=== PATIENT | female | born 1975 | race Caucasian/White ===

== ENCOUNTER 2017-03-04 10:46 | Day surgery (SDC) | payer MEDICARE, MEDICAID ==
[2017-02-28 09:33] LABS: BASOPHILS % (AUTO) 0.4 % (0-1); EOSINOPHILS # (AUTO) 0.2 X10'3 (0-0.9); EOSINOPHILS % (AUTO) 2.3 % (0-6); HEMOGLOBIN 11.7 g/dl (12.0-16.0); LYMPHOCYTES # (AUTO) 2.1 X10'3 (1.1-4.8); LYMPHOCYTES % (AUTO) 31.1 % (21-51); MEAN CORPUSCULAR HEMOGLOBIN 24.4 PG (27.0-31.0); MEAN CORPUSCULAR HGB CONC 31.5 % (33.0-36.5); MEAN CORPUSCULAR VOLUME 77.6 FL (78-98); MONOCYTES # (AUTO) 0.4 X10'3 (0-0.9); MONOCYTES % (AUTO) 5.5 % (2-12); NEUTROPHILS # (AUTO) 4.1 X10'3 (1.8-7.7); NEUTROPHILS % (AUTO) 60.7 % (42-75); PLATELET COUNT 404 X10'3 (140-440); RED BLOOD COUNT 4.77 X10'6 (4.20-5.60); RED CELL DISTRIBUTION WIDTH 19.3 % (11.5-14.5); WHITE BLOOD COUNT 6.8 X10'3 (4.5-11.0)
[2017-02-28 09:44] LABS: PARTIAL THROMBOPLASTIN TIME 25 SECONDS (22-32); PROTHROMBIN TIME 10.6 SECONDS (9.0-12.0)
[2017-02-28 09:48] LABS: ALBUMIN 3.3 G/DL (3.4-5.0); ANION GAP 5 (8-16); BLOOD UREA NITROGEN 12 MG/DL (7-18); BUN/CREATININE RATIO 14.5 (6.6-38.0); CALCIUM 9.3 MG/DL (8.5-10.1); CHLORIDE 107 MMOL/L (99-107); CHOL/HDL RATIO 6.4 (0.00-4.99); CHOLESTEROL 187 MG/DL (0-200); CREATININE 0.83 MG/DL (0.40-0.90); GLUCOSE 101 MG/DL (70-104); HDL CHOLESTEROL 29 MG/DL (35-60); LDL CHOLESTEROL 132 MG/DL (50-100); POTASSIUM 3.4 MMOL/L (3.5-5.1); SODIUM 141 MMOL/L (135-145); TOTAL CARBON DIOXIDE 28.6 MMOL/L (24-32); TRIGLYCERIDES 223 MG/DL (20-135); eGFR 75 ML/MIN
[2017-03-04] VITALS (10 sets, daily range): BP systolic 123–161; BP diastolic 58–91
[~2017-03-04] VITALS: Ht 180.3 cm; Wt 97.0 kg
[2017-03-04] MEDS ORDERED: normal saline 1000ml 1,000 ML IV SCH (11:10)
[2017-03-04] MEDS ORDERED: LORazepam 0.5 MG tablet PO PRN (11:10)
[2017-03-04] MEDS ORDERED: diphenhydrAMINE 25mg capsule PO PRN (11:10)
[2017-03-04] MEDS ORDERED: ARIP10TA15 PO (12:57)
[2017-03-04] MEDS ORDERED: ISOS30TA6 PO (12:57)
[2017-03-04] MEDS ORDERED: GABA-532 PO (12:57)
[2017-03-04] MEDS ORDERED: GABA600T2 PO (12:57)
[2017-03-04] MEDS ORDERED: CLON-529 PO (12:57)
[2017-03-04] MEDS ORDERED: ATOR40TA PO (12:57)
[2017-03-04] MEDS ORDERED: ASPI-611 PO (12:57)
[2017-03-04] MEDS ORDERED: ALB0.5UD NEB (12:57)
[2017-03-04] MEDS ORDERED: BENZ-16 PO (13:08)
[2017-03-04] MEDS ORDERED: ALBU18HF2 INH (13:08)
[2017-03-04] MEDS ORDERED: PRAZ5CAP PO (13:08)
[2017-03-04] MEDS ORDERED: CHOL10002 PO (13:08)
[2017-03-04] MEDS ORDERED: METO25TA6 PO (13:08)
[2017-03-04] MEDS ORDERED: QUET1TAB PO (13:08)
[2017-03-04] MEDS ORDERED: PANT-47 PO (13:08)
[2017-03-04] MEDS ORDERED: LORA-512 PO (13:08)
[2017-03-04] MEDS ORDERED: PER10325T PO (13:08)
[2017-03-04] MEDS ORDERED: fentaNYL/PF 50MCG/1 ML 2ML syringe ONE ×2 (14:06→14:55)
[2017-03-04] MEDS ORDERED: midazolam 2 mg/2 ml injection ONE (14:06)
[2017-03-04] MEDS ORDERED: iohexol 350MG/ML 100ml bottle IV ONE (14:07)
[2017-03-04] MEDS ORDERED: LIDOcaine 1%/PF (10mg/ml) 5ml vial ONE (15:00)
[2017-03-04] MEDS ORDERED: iohexol 350 MG/ML 50ML vial IV ONE (15:18)
[2017-03-04] MEDS ORDERED: nitroGLYCERIN 0.4mg SUBLingual tab SL PRN (15:55)
[2017-03-04] MEDS ORDERED: proCHLORperazine 10 MG/2 ml inj IV PRN (15:55)
[2017-03-04] MEDS ORDERED: HYDROcodone/acetaminophen 5mg/325mg tablet PO PRN (15:55)
[2017-03-04] MEDS ORDERED: oxyCODONE/APAP 10/325mg tablet PO PRN (15:55)
[2017-03-04] MEDS ORDERED: HYDROcodone/acetaminophen 10/325mg tab PO PRN (15:55)
[2017-03-04] MEDS ORDERED: ondansetron/PF 4mg/2ml inj IV PRN (15:55)
[2017-03-04] MEDS ORDERED: OXAZEpam 15mg capsule PO PRN (15:55)
== END 2017-03-04 19:00 | disposition home or self-care (01) ==
LOC: SSTAY O 10:46
PROVIDERS: ATTEND Internal Medicine Interventional Cardiology
DX: I25.10 Atherosclerotic heart disease of native coronary artery without angina pectoris (principal); I10 Essential (primary) hypertension; K21.9 Gastro-esophageal reflux disease without esophagitis; E78.5 Hyperlipidemia, unspecified; Q23.1 Congenital insufficiency of aortic valve; E11.9 Type 2 diabetes mellitus without complications; G47.33 Obstructive sleep apnea (adult) (pediatric); C85.90 Non-Hodgkin lymphoma, unspecified, unspecified site; F17.210 Nicotine dependence, cigarettes, uncomplicated; F31.9 Bipolar disorder, unspecified; Z79.82 Long term (current) use of aspirin; Z79.899 Other long term (current) drug therapy; Z79.01 Long term (current) use of anticoagulants
CPT/HCPCS: 36415; 80048; 80061; 82948; 85025; 85610; 85730; 93308; 93312; 93320; 93325; 93458; 93567; 99152; 99153; A6257; C1760; C1769; J1644; J2001; J2250; J2405; J3010; J7030; Q0163; Q9967; 93459; A4620

== ENCOUNTER 2017-03-26 08:11 | Emergency (ER) | payer MEDICARE, MEDICAID ==
[~2017-03-26] VITALS: Ht 167.6 cm; Wt 95.0 kg
[~2017-03-26 08:11] MED LIST: ALB0.5UD NEB; ALBU18HF2 INH; ARIP10TA15 PO; ASPI-611 PO; ATOR40TA PO; BENZ-16 PO; CHOL10002 PO; CLON-529 PO; GABA-532 PO; GABA600T2 PO; ISOS30TA6 PO; LORA-512 PO; METO25TA6 PO; PANT-47 PO; PER10325T PO; PRAZ5CAP PO; QUET1TAB PO
[2017-03-26] MEDS ORDERED: oxyCODONE IR 5mg (immed. release) tablet PO ONE (09:35)
[2017-03-26] MEDS ORDERED: ketorolac trometh inj. 60 MG/2 ML VIAL IM ONE (09:35)
[2017-03-26] MEDS ORDERED: cyclobenzaprine 10mg tablet PO ONE (09:35)
[2017-03-26] MEDS ORDERED: acetaminophen 325mg tablet PO ONE (09:35)
[2017-03-26] MEDS ORDERED: LIDOcaine 5% patch TP ONE (09:35)
[2017-03-26] MEDS ORDERED: CYCL-1 PO (10:28)
[2017-03-26] MEDS ORDERED: LIDO700A32 TOP (10:28)
[2017-03-26 10:52] VITALS: BP 124/72
== END 2017-03-26 10:55 | disposition home or self-care (01) ==
LOC: ER 08:12
DX: M54.5 Low back pain (principal); G89.29 Other chronic pain; G62.9 Polyneuropathy, unspecified; I10 Essential (primary) hypertension; F17.200 Nicotine dependence, unspecified, uncomplicated; Z98.84 Bariatric surgery status; Z88.6 Allergy status to analgesic agent; Z88.8 Allergy status to other drugs, medicaments and biological substances; Z79.899 Other long term (current) drug therapy
CPT/HCPCS: 72100; 96372; 99284; J1885

== ENCOUNTER 2017-04-03 05:12 | Inpatient (IN) | payer MEDICARE, MEDICAID ==
[2017-04-01 15:07] LABS: CLARITY,URINE Cloudy (Clear); COLOR,URINE Yellow (Yellow); GLUCOSE, URINE Negative (Neg); KETONES,URINE Negative (Neg); LEUKOCYTE ESTERASE ,URINE Small (Neg); NITRITES, URINE Negative (Neg); OCCULT BLOOD,URINE Negative (Neg); PH,URINE 5.5 (4.8-8.0); PROTEIN,URINE Negative (Neg)
[2017-04-01 15:08] LABS: BASOPHILS % (AUTO) 0.5 % (0-1); EOSINOPHILS # (AUTO) 0.2 X10'3 (0-0.9); EOSINOPHILS % (AUTO) 2.4 % (0-6); LYMPHOCYTES % (AUTO) 30.1 % (21-51); MEAN CORPUSCULAR HEMOGLOBIN 24.2 PG (27.0-31.0); MEAN CORPUSCULAR HGB CONC 31.6 % (33.0-36.5); MEAN CORPUSCULAR VOLUME 76.6 FL (78-98); MEAN PLATELET VOLUME 8.4 FL (7.4-10.4); MONOCYTES # (AUTO) 0.4 X10'3 (0-0.9); NEUTROPHILS # (AUTO) 4.1 X10'3 (1.8-7.7); PRE OP HEMOGLOBIN 11.4 g/dL (12.0-16.0); PRE OP PLATELET COUNT 307 X10'3 (140-440); RED BLOOD COUNT 4.69 X10'6 (4.20-5.60); RED CELL DISTRIBUTION WIDTH 19.5 % (11.5-14.5)
[2017-04-01 15:12] LABS: HEMOGLOBIN A1C 5.8 % (4.5-6.2)
[2017-04-01 15:14] LABS: UA COLLECTION TYPE CLN CATCH MIDSTREAM
[2017-04-01 15:18] LABS: ALBUMIN 3.6 G/DL (3.4-5.0); ALBUMIN/GLOBULIN RATIO 0.9 (1.1-1.5); ALKALINE PHOSPHATASE 90 IU/L (46-116); BLOOD UREA NITROGEN 12 MG/DL (7-18); CALCIUM 9.2 MG/DL (8.5-10.1); CHLORIDE 106 MMOL/L (99-107); PRE OP ALT 35 U/L (30-65); PRE OP ANION GAP 5 (8-16); PRE OP AST 16 U/L (10-37); PRE OP BILIRUB, TOTAL 0.2 MG/DL (0.0-1.0); PRE OP GLUCOSE 92 MG/DL (70-104); PRE OP POTASSIUM 3.8 MMOL/L (3.4-5.1); PRE OP SODIUM 141 MMOL/L (135-145); TOTAL PROTEIN 7.6 G/DL (6.4-8.2); eGFR 78 ML/MIN
[2017-04-01 15:32] LABS: SQUAMOUS EPITHELIAL CELL,UR MANY /LPF (FEW)
[2017-04-01 15:35] LABS: CAL OXALATE CRYSTALS 4+ /HPF (NEGATIVE)
[2017-04-01 15:36] LABS: BACTERIA,URINE 3+ /HPF (Neg)
[2017-04-01 15:39] LABS: RBC,URINE NONE SEEN /HPF (0-2); WBC,URINE 0-4 /HPF (0-4); YEAST MODERATE /HPF (NEGATIVE)
[2017-04-02 05:11] LABS: ABG HCO3 27.1 mmol/L (22.0-26.0); ABG OXYGEN SATURATION 96.9 % (95-98); ABG PCO2 (T) 39.8 mmHg (32.0-45.0); ABG PH (T) 7.451 (7.350-7.450); ABG PO2 (T) 91.5 mmHg (83-108); ALLEN'S TEST Positive; FCOHb 6.6 % (0.5-1.5); FMetHb 0.3 % (0.3-1.12); FO2Hb 90.2 % (94-100); TOTAL HEMOGLOBIN 11.8 G/dl (12.0-16.0)
[~2017-04-03] VITALS: Ht 180.3 cm; Wt 103.5 kg
[2017-04-03] VITALS (16 sets, daily range): BP systolic 104–154; BP diastolic 48–70
[~2017-04-03 05:12] MED LIST changes: -ARIP10TA15 PO; -BENZ-16 PO; -CLON-529 PO; +LIDO700A32 TOP; +LORazepam 2 mg/ml vial IV PRN; +OXYC10TA47 PO; -PER10325T PO; +PRAZ1CAP5 PO; -PRAZ5CAP PO; -QUET1TAB PO; +albuterol 2.5 MG/3 ML nebule NEB ONE; +chlorhexidine gluc 0.4% **topical ** 120ml btl. TP ONE; +ringers solution, lacted 1,000 ML IV SCH
[2017-04-03] MEDS ORDERED: ceFAZolin 2gm in dextrose, iso 100 ML IV ONE (05:30)
[2017-04-03] MEDS ORDERED: dextrose 50%-water 50ml dispensing syringe IV PRN ×2 (05:30→13:45)
[2017-04-03] MEDS ORDERED: albuterol 2.5 MG/3 ML nebule NEB ONE (05:30)
[2017-04-03] MEDS ORDERED: famotidine 20mg tablet PO ONE (05:30)
[2017-04-03] MEDS ORDERED: insulin regular, human 100 UNITS in normal saline 100ml IV soln 99 ML IV SCH ×2 (05:30)
[2017-04-03] MEDS ORDERED: LIDOcaine 1% (10mg/ml) 2ml vial ONE (05:42)
[2017-04-03] MEDS ORDERED: MIDAZolam 1mg/ml 10ml vial ONE (06:58)
[2017-04-03] MEDS ORDERED: SUFENTANIL CITRATE 50 MCG/ML 2ml ampule IV ONE (06:59)
[2017-04-03] MEDS ORDERED: mupirocin 2% ointment 22GM NS SCH (08:00)
[2017-04-03] MEDS ORDERED: oxyCODONE SR 10mg (sust. release) tab PO ONE (08:20)
[2017-04-03] MEDS ORDERED: DOPamine/D5W 400mg/250ml bag IV ONE (08:40)
[2017-04-03] MEDS ORDERED: nitroGLYCERIN in D5W 50mg/250ml (Tridil) infusion IV ONE (08:40)
[2017-04-03] MEDS ORDERED: isoflurane 100ml inhalation liquid IH ONE (08:40)
[2017-04-03] MEDS ORDERED: MIDAZolam 5mg/ml 2ml vial ONE (08:52)
[2017-04-03] MEDS ORDERED: NORMAL SALINE IV ONE (10:30)
[2017-04-03] MEDS ORDERED: TRANEXAMIC ACID IV ONE (10:30)
[2017-04-03 10:31] LABS: ABG BASE EXCESS 0.9 mmol/L (-2.0-3.0); ABG HCO3 26.4 mmol/L (22.0-26.0); ABG OXYGEN SATURATION 99.1 % (95-98); ABG PCO2 45.8 mmHg (35.0-45.0); ABG PH 7.378 (7.350-7.450); ABG PO2 254.9 mmHg (60.0-100.0); CL (ABG) 107 mmol/L (99-107); FCOHb 0.7 % (0.5-1.5); FMetHb 0.3 % (0.3-1.12); FO2Hb 98.1 % (94-100); GLUCOSE (ABG) 131 mg/dl (70-105); K (ABG) 4.1 mmol/L (3.3-5.1); NA (ABG) 138 mmol/L (135-145); TOTAL HEMOGLOBIN 10.9 G/dl (12.0-16.0)
[2017-04-03] MEDS ORDERED: LIDOcaine 2% (20mg/ml) 5ml vial ONE (10:37)
[2017-04-03] MEDS ORDERED: rocuronium 10mg/ml inj IV ONE ×4 (10:37)
[2017-04-03] MEDS ORDERED: ePHEDrine 50MG/ML INJ. ONE (10:37)
[2017-04-03] MEDS ORDERED: propofol inj 20 ML IV ONE (10:37)
[2017-04-03] MEDS ORDERED: 0.9 % SODIUM CHLORIDE 10 ML VIAL ONE ×2 (10:37)
[2017-04-03] MEDS ORDERED: phenylephrine 10mg/ml inj IV ONE (10:38)
[2017-04-03 10:45] LABS: ACT @ 1.70 U 283 SEC (193-297); ACT @ 2.84 U 422 SEC (260-420); BASELINE ACT 147 SEC (101-148); PATIENT WEIGHT 98.0k KG
[2017-04-03] MEDS ORDERED: midazolam 2 mg/2 ml injection IV PRN (11:10)
[2017-04-03] MEDS ORDERED: fentaNYL/PF 50MCG/1 ML 2ML syringe IV PRN (11:10)
[2017-04-03 11:21] LABS: ABG BASE EXCESS 2.1 mmol/L (-2.0-3.0); ABG HCO3 27.5 mmol/L (22.0-26.0); ABG OXYGEN SATURATION 99.5 % (95-98); ABG PCO2 47.4 mmHg (35.0-45.0); ABG PH 7.382 (7.350-7.450); ABG PO2 370.4 mmHg (60.0-100.0); CL (ABG) 109 mmol/L (99-107); FO2Hb 98.5 % (94-100); GLUCOSE (ABG) 105 mg/dl (70-105); IONIZED CA (ABG) 1.12 mmol/L (1.03-1.32); K (ABG) 4.7 mmol/L (3.3-5.1); NA (ABG) 140 mmol/L (135-145); TOTAL HEMOGLOBIN 8.7 G/dl (12.0-16.0)
[2017-04-03 11:40] LABS: ABG HCO3 VENOUS 26.3 mmol/L; ABG PCO2 VENOUS 45.2 mmHg; ABG PO2 VENOUS 49.7 mmHg; CL (ABG) 108 mmol/L (99-107); FCOHb VENOUS 1.1 %; FHHb VENOUS 14.7 %; FMetHb VENOUS 0.1 %; FO2Hb VENOUS 84.1 %; GLUCOSE (ABG) 104 mg/dl (70-105); IONIZED CA (ABG) 1.12 mmol/L (1.03-1.32); K (ABG) 4.6 mmol/L (3.3-5.1); NA (ABG) 139 mmol/L (135-145); TOTAL HEMOGLOBIN 8.6 G/dl (12.0-16.0)
[2017-04-03 12:06] LABS: ABG BASE EXCESS 1.7 mmol/L (-2.0-3.0); ABG HCO3 26.5 mmol/L (22.0-26.0); ABG OXYGEN SATURATION 99.1 % (95-98); ABG PCO2 42.2 mmHg (35.0-45.0); ABG PH 7.415 (7.350-7.450); ABG PO2 332.3 mmHg (60.0-100.0); CL (ABG) 109 mmol/L (99-107); FCOHb 0.7 % (0.5-1.5); FMetHb 0.4 % (0.3-1.12); GLUCOSE (ABG) 110 mg/dl (70-105); IONIZED CA (ABG) 1.13 mmol/L (1.03-1.32); K (ABG) 4.4 mmol/L (3.3-5.1); NA (ABG) 138 mmol/L (135-145); TOTAL HEMOGLOBIN 8.5 G/dl (12.0-16.0)
[2017-04-03 12:31] LABS: ABG BASE EXCESS 1.8 mmol/L (-2.0-3.0); ABG HCO3 24.5 mmol/L (22.0-26.0); ABG OXYGEN SATURATION 99.2 % (95-98); ABG PCO2 30.7 mmHg (35.0-45.0); ABG PO2 408.3 mmHg (60.0-100.0); CL (ABG) 108 mmol/L (99-107); FMetHb 0.4 % (0.3-1.12); FO2Hb 97.8 % (94-100); GLUCOSE (ABG) 111 mg/dl (70-105); IONIZED CA (ABG) 1.33 mmol/L (1.03-1.32); K (ABG) 4.8 mmol/L (3.3-5.1); NA (ABG) 138 mmol/L (135-145)
[2017-04-03] MEDS ORDERED: morphine 10mg/ml inj. IV ONE (13:30)
[2017-04-03] MEDS ORDERED: nitroGLYCERIN-Tridil 50MG/D5W 250 ML IV PRN (13:44)
[2017-04-03] MEDS ORDERED: DOPamine 400mg/D5W 250ml 250 ML IV PRN (13:44)
[2017-04-03] MEDS ORDERED: niCARDipine/sod cl 20mg/200ml 200 ML IV PRN (13:44)
[2017-04-03] MEDS ORDERED: sodium chloride 0.45% 1,000 ML IV SCH (13:44)
[2017-04-03] MEDS ORDERED: NORepinephrine 8mg/ 250ml NS 250 ML IV PRN (13:44)
[2017-04-03] MEDS ORDERED: acetaminophen 325mg tablet PO PRN (13:45)
[2017-04-03] MEDS ORDERED: normal saline 250ml IV soln 250 ML IV PRN (13:45)
[2017-04-03] MEDS ORDERED: magnesium 2GM in 50ml NS 50 ML IV PRN (13:45)
[2017-04-03] MEDS ORDERED: magnesium 4gm in 100ml NS 100 ML IV PRN (13:45)
[2017-04-03] MEDS ORDERED: albumin (Human) 5% 250ml 250 ML IV PRN (13:45)
[2017-04-03] MEDS ORDERED: Neutra Phos packet PO PRN (13:45)
[2017-04-03] MEDS ORDERED: morphine 2 MG/ML inj. syringe IV PRN (13:45)
[2017-04-03] MEDS ORDERED: ondansetron/PF 4mg/2ml inj IV PRN (13:45)
[2017-04-03] MEDS ORDERED: sodium phosphate inj. 30 MMOL in dextrose 5%-water 250 ML IV PRN (13:45)
[2017-04-03] MEDS ORDERED: metoclopramide 5 mg/ml inj IV PRN (13:45)
[2017-04-03] MEDS ORDERED: sodium phosphate inj. 15 MMOL in dextrose 5%-water 150 ML IV PRN (13:45)
[2017-04-03] MEDS ORDERED: HYDROcodone/acetaminophen 10/325mg tab PO PRN ×2 (13:45)
[2017-04-03] MEDS ORDERED: magnesium hydroxide 30ml (MOM) UD suspension PO PRN (13:45)
[2017-04-03] MEDS ORDERED: insulin regular, human inj. 100 UNITS in normal saline 100ml IV soln 100 ML IV SCH ×2 (13:45)
[2017-04-03] MEDS ORDERED: potassium Cl 20mEq/100mL bag 100 ML IV PRN ×3 (13:45)
[2017-04-03 14:16] LABS: ABG BASE EXCESS 0.6 mmol/L (-2.0-3.0); ABG HCO3 25.4 mmol/L (22.0-26.0); ABG OXYGEN SATURATION 98.4 % (95-98); ABG PH (T) 7.408 (7.350-7.450); ABG PO2 (T) 154.9 mmHg (83-108); FCOHb 0.3 % (0.5-1.5); FMetHb 0.1 % (0.3-1.12); PATIENT TEMPERATURE 36.7; PEEP 5 cm H2O; RESPIRATORY RATE 12 b/min; TIDAL VOLUME 600 mL; TOTAL HEMOGLOBIN 9.4 G/dl (12.0-16.0)
[2017-04-03 14:17] LABS: BASOPHILS % (AUTO) 0 % (0-1); EOSINOPHILS # (AUTO) 0.3 X10'3 (0-0.9); EOSINOPHILS % (AUTO) 1.7 % (0-6); HEMOGLOBIN 8.8 g/dl (12.0-16.0); LYMPHOCYTES # (AUTO) 0.6 X10'3 (1.1-4.8); LYMPHOCYTES % (AUTO) 2.9 % (21-51); MEAN CORPUSCULAR HEMOGLOBIN 24.1 PG (27.0-31.0); MEAN CORPUSCULAR HGB CONC 31.6 % (33.0-36.5); MEAN CORPUSCULAR VOLUME 76.4 FL (78-98); MEAN PLATELET VOLUME 7.9 FL (7.4-10.4); MONOCYTES # (AUTO) 0.7 X10'3 (0-0.9); MONOCYTES % (AUTO) 3.1 % (2-12); NEUTROPHILS # (AUTO) 19.3 X10'3 (1.8-7.7); NEUTROPHILS % (AUTO) 92.3 % (42-75); PLATELET COUNT 253 X10'3 (140-440); RED BLOOD COUNT 3.66 X10'6 (4.20-5.60); RED CELL DISTRIBUTION WIDTH 19.2 % (11.5-14.5); WHITE BLOOD COUNT 20.9 X10'3 (4.5-11.0)
[2017-04-03 14:21] LABS: ACTIVATED CLOTTING TIME 127 SEC (101-148)
[2017-04-03 14:28] LABS: INR 1.1 INR; PARTIAL THROMBOPLASTIN TIME 29 SECONDS (22-32); PROTHROMBIN TIME 11.3 SECONDS (9.0-12.0)
[2017-04-03 14:32] LABS: ALANINE AMINOTRANSFERASE 23 U/L (12-78); ALBUMIN 2.8 G/DL (3.4-5.0); ALKALINE PHOSPHATASE 62 IU/L (46-116); ANION GAP -1 (8-16); ASPARTATE AMINO TRANSFERASE 26 U/L (10-37); BILIRUBIN,TOTAL 0.3 MG/DL (0.1-1.0); BLOOD UREA NITROGEN 11 MG/DL (7-18); BUN/CREATININE RATIO 12.2 (6.6-38.0); CALCIUM 8.7 MG/DL (8.5-10.1); CHLORIDE 109 MMOL/L (99-107); GLUCOSE 135 MG/DL (70-104); MAGNESIUM 2.9 MG/DL (1.5-2.4); PHOSPHORUS 3.5 MG/DL (2.3-4.5); POTASSIUM 4.5 MMOL/L (3.5-5.1); SODIUM 137 MMOL/L (135-145); TOTAL CARBON DIOXIDE 28.9 MMOL/L (24-32); TOTAL PROTEIN 5.5 G/DL (6.4-8.2); eGFR 68 ML/MIN
[2017-04-03] MEDS: morphine 2 MG/ML inj. syringe IV PRN ×4 (15:37→23:18)
[2017-04-03] MEDS ORDERED: non-formulary drug (Gabapentin 1 TAB) PO SCH (17:00)
[2017-04-03] MEDS: cefazolin 1gm/NS 100mL 100 ML IV SCH ×2 (17:14→23:18)
[2017-04-03] MEDS ORDERED: insulin Lispro (HumaLOG) vial - multi-dose SQ SCH (18:00)
[2017-04-03] MEDS: vancomycin/NS 1 GM ADD-VANTAGE 250 ML IV SCH (19:50)
[2017-04-03] MEDS: mupirocin 2% ointment 22GM NS SCH (19:51)
[2017-04-03] MEDS: docusate sod 100mg capsule PO SCH (19:51)
[2017-04-03 20:36] LABS: ABG BASE EXCESS -0.9 mmol/L (-2.0-3.0); ABG HCO3 23.4 mmol/L (22.0-26.0); ABG PH (T) 7.409 (7.350-7.450); ABG PO2 (T) 119.9 mmHg (83-108); FCOHb 0.3 % (0.5-1.5); FMetHb 0.1 % (0.3-1.12); FO2Hb 97.6 % (94-100); MINUTE VOLUME 7 L/min; PATIENT TEMPERATURE 37.4; PEEP 5 cm H2O; RESPIRATORY RATE (OBSERVED) 12 b/min; TOTAL HEMOGLOBIN 10.9 G/dl (12.0-16.0)
[2017-04-03] MEDS: oxyCODONE IR 5mg (immed. release) tablet PO PRN (21:06)
[2017-04-03] MEDS: gabapentin 300mg capsule PO PRN (21:06)
[2017-04-04] VITALS (24 sets, daily range): BP systolic 83–126; BP diastolic 45–66
[2017-04-04] MEDS: ipratropium/albuterol 3ml nebule NEB PRN ×3 (00:34→21:45)
[2017-04-04] MEDS: oxyCODONE IR 5mg (immed. release) tablet PO PRN ×6 (00:52→23:07)
[2017-04-04 01:47] LABS: BASOPHILS % (AUTO) 0.1 % (0-1); EOSINOPHILS % (AUTO) 0 % (0-6); HEMATOCRIT 30.5 % (35.0-45.0); HEMOGLOBIN 10.1 g/dl (12.0-16.0); LYMPHOCYTES # (AUTO) 0.9 X10'3 (1.1-4.8); LYMPHOCYTES % (AUTO) 5.4 % (21-51); MEAN CORPUSCULAR HEMOGLOBIN 25.2 PG (27.0-31.0); MEAN CORPUSCULAR VOLUME 76.3 FL (78-98); MEAN PLATELET VOLUME 8.9 FL (7.4-10.4); MONOCYTES # (AUTO) 1.1 X10'3 (0-0.9); MONOCYTES % (AUTO) 6.5 % (2-12); NEUTROPHILS # (AUTO) 14.6 X10'3 (1.8-7.7); PLATELET COUNT 228 X10'3 (140-440); RED CELL DISTRIBUTION WIDTH 18.5 % (11.5-14.5); WHITE BLOOD COUNT 16.6 X10'3 (4.5-11.0)
[2017-04-04 01:52] LABS: PARTIAL THROMBOPLASTIN TIME 23 SECONDS (22-32); PROTHROMBIN TIME 10.1 SECONDS (9.0-12.0)
[2017-04-04 01:56] LABS: ALANINE AMINOTRANSFERASE 25 U/L (12-78); ALKALINE PHOSPHATASE 64 IU/L (46-116); ANION GAP 5 (8-16); ASPARTATE AMINO TRANSFERASE 37 U/L (10-37); BILIRUBIN,TOTAL 0.3 MG/DL (0.1-1.0); BLOOD UREA NITROGEN 15 MG/DL (7-18); BUN/CREATININE RATIO 16.7 (6.6-38.0); CALCIUM 8.8 MG/DL (8.5-10.1); CHLORIDE 109 MMOL/L (99-107); GLUCOSE 109 MG/DL (70-104); MAGNESIUM 2.2 MG/DL (1.5-2.4); PHOSPHORUS 4.1 MG/DL (2.3-4.5); POTASSIUM 4.7 MMOL/L (3.5-5.1); SODIUM 143 MMOL/L (135-145); TOTAL CARBON DIOXIDE 28.9 MMOL/L (24-32); eGFR 68 ML/MIN
[2017-04-04] MEDS: morphine 2 MG/ML inj. syringe IV PRN ×2 (02:05→04:01)
[2017-04-04] MEDS: gabapentin 300mg capsule PO PRN ×2 (05:24→16:38)
[2017-04-04] MEDS: atorvastatin 10mg tablet PO SCH (07:17)
[2017-04-04] MEDS: loratadine 10mg tablet PO SCH (07:17)
[2017-04-04] MEDS: mupirocin 2% ointment 22GM NS SCH ×2 (07:17→20:46)
[2017-04-04] MEDS: cefazolin 1gm/NS 100mL 100 ML IV SCH ×3 (07:17→23:58)
[2017-04-04] MEDS: pantoprazole 40mg Tablet.DR PO SCH (07:17)
[2017-04-04] MEDS: docusate sod 100mg capsule PO SCH ×2 (07:17→20:00)
[2017-04-04] MEDS ORDERED: insulin Lispro (HumaLOG) vial - multi-dose SQ SCH (07:50)
[2017-04-04] MEDS ORDERED: dextrose ORAL solution 15 GM/59 ML bottle PO PRN ×2 (08:00)
[2017-04-04] MEDS ORDERED: dextrose 50%-water 50ml dispensing syringe IV PRN ×2 (08:00)
[2017-04-04] MEDS ORDERED: glucagon, human recombinant 1mg kit SUBCUT PRN (08:00)
[2017-04-04] MEDS ORDERED: MESSAGE TO PHARMACY PO ONE (08:00)
[2017-04-04] MEDS ORDERED: metoprolol tartrate 12.5mg (1/2 tablet) PO SCH (08:00)
[2017-04-04] MEDS: vancomycin/NS 1 GM ADD-VANTAGE 250 ML IV SCH ×2 (08:04→20:41)
[2017-04-04] MEDS: HYDROmorphone 1 mg/ml syringe IV PRN ×4 (08:53→20:46)
[2017-04-04] MEDS: mineral oil/petrolatum ophthal oint EACHEYE SCH ×2 (13:42→20:00)
[2017-04-04] MEDS ORDERED: ketorolac tromethamine 15mg/ml inj. IV SCH (14:00)
[2017-04-04] MEDS ORDERED: insulin glargine (Lantus) pen - multi-dose SQ SCH (21:00)
[2017-04-05] VITALS (17 sets, daily range): BP systolic 90–123; BP diastolic 42–68
[2017-04-05] MEDS: HYDROmorphone 1 mg/ml syringe IV PRN ×5 (00:50→21:35)
[2017-04-05] MEDS: mineral oil/petrolatum ophthal oint EACHEYE SCH ×3 (02:00→11:12)
[2017-04-05] MEDS: oxyCODONE IR 5mg (immed. release) tablet PO PRN ×6 (03:23→23:35)
[2017-04-05 03:50] LABS: BASOPHILS % (AUTO) 0.2 % (0-1); EOSINOPHILS # (AUTO) 0.1 X10'3 (0-0.9); HEMATOCRIT 25.9 % (35.0-45.0); HEMOGLOBIN 8.2 g/dl (12.0-16.0); LYMPHOCYTES # (AUTO) 1.3 X10'3 (1.1-4.8); MEAN CORPUSCULAR HEMOGLOBIN 24.4 PG (27.0-31.0); MEAN CORPUSCULAR HGB CONC 31.5 % (33.0-36.5); MEAN CORPUSCULAR VOLUME 77.5 FL (78-98); MEAN PLATELET VOLUME 8.5 FL (7.4-10.4); MONOCYTES # (AUTO) 1.2 X10'3 (0-0.9); MONOCYTES % (AUTO) 9.7 % (2-12); NEUTROPHILS # (AUTO) 10.1 X10'3 (1.8-7.7); NEUTROPHILS % (AUTO) 79.1 % (42-75); PLATELET COUNT 170 X10'3 (140-440); RED BLOOD COUNT 3.34 X10'6 (4.20-5.60); RED CELL DISTRIBUTION WIDTH 19.7 % (11.5-14.5); WHITE BLOOD COUNT 12.8 X10'3 (4.5-11.0)
[2017-04-05 04:22] LABS: ALBUMIN 2.9 G/DL (3.4-5.0); ANION GAP 6 (8-16); BLOOD UREA NITROGEN 15 MG/DL (7-18); BUN/CREATININE RATIO 16.7 (6.6-38.0); CALCIUM 8.9 MG/DL (8.5-10.1); CHLORIDE 104 MMOL/L (99-107); GLUCOSE 108 MG/DL (70-104); PHOSPHORUS 3.7 MG/DL (2.3-4.5); POTASSIUM 4.6 MMOL/L (3.5-5.1); SODIUM 138 MMOL/L (135-145); TOTAL CARBON DIOXIDE 28.2 MMOL/L (24-32); eGFR 68 ML/MIN
[2017-04-05] MEDS: loratadine 10mg tablet PO SCH (07:32)
[2017-04-05] MEDS: atorvastatin 10mg tablet PO SCH (07:32)
[2017-04-05] MEDS: docusate sod 100mg capsule PO SCH ×2 (07:33→19:37)
[2017-04-05] MEDS: gabapentin 300mg capsule PO PRN (07:33)
[2017-04-05] MEDS: pantoprazole 40mg Tablet.DR PO SCH (07:33)
[2017-04-05] MEDS: mupirocin 2% ointment 22GM NS SCH (07:34)
[2017-04-05] MEDS: ipratropium/albuterol 3ml nebule NEB PRN ×2 (08:40→20:15)
[2017-04-05] MEDS ORDERED: HYDROmorphone inj. 0.5 MG/0.5 ML DISP.SYRIN ONE (09:21)
[2017-04-05] MEDS ORDERED: potassium Cl 40MEQ/NS 500ml 500 ML IV PRN ×2 (09:50)
[2017-04-05] MEDS ORDERED: potassium Cl 20 mEq SR tablet PO PRN ×2 (09:50)
[2017-04-05] MEDS ORDERED: magnesium Cl slow-release 64mg tablet PO PRN (09:50)
[2017-04-05] MEDS ORDERED: magnesium 4gm in 100ml NS 100 ML IV PRN (09:50)
[2017-04-05] MEDS ORDERED: magnesium 2GM in 50ml NS 50 ML IV PRN (09:50)
[2017-04-05 11:13] LABS: INR 1.1 INR; PROTHROMBIN TIME 10.9 SECONDS (9.0-12.0)
[2017-04-05] MEDS: magnesium Cl slow-release 64mg tablet PO SCH (19:36)
[2017-04-05] MEDS: potassium Cl 20 mEq SR tablet PO SCH (19:40)
[2017-04-05] MEDS ORDERED: warfarin 5mg tablet PO ONE (21:00)
[2017-04-06] VITALS (15 sets, daily range): BP systolic 94–118; BP diastolic 41–85
[2017-04-06] MEDS: HYDROmorphone 1 mg/ml syringe IV PRN ×6 (01:39→23:55)
[2017-04-06 02:34] LABS: BASOPHILS % (AUTO) 0 % (0-1); EOSINOPHILS # (AUTO) 0.2 X10'3 (0-0.9); EOSINOPHILS % (AUTO) 1.2 % (0-6); HEMATOCRIT 24.4 % (35.0-45.0); HEMOGLOBIN 7.8 g/dl (12.0-16.0); LYMPHOCYTES # (AUTO) 1.1 X10'3 (1.1-4.8); LYMPHOCYTES % (AUTO) 8.8 % (21-51); MEAN CORPUSCULAR HEMOGLOBIN 24.7 PG (27.0-31.0); MEAN CORPUSCULAR VOLUME 77.1 FL (78-98); MEAN PLATELET VOLUME 8.6 FL (7.4-10.4); MONOCYTES # (AUTO) 1.2 X10'3 (0-0.9); MONOCYTES % (AUTO) 9.3 % (2-12); NEUTROPHILS # (AUTO) 10.2 X10'3 (1.8-7.7); NEUTROPHILS % (AUTO) 80.7 % (42-75); PLATELET COUNT 185 X10'3 (140-440); RED BLOOD COUNT 3.17 X10'6 (4.20-5.60); WHITE BLOOD COUNT 12.6 X10'3 (4.5-11.0)
[2017-04-06 02:47] LABS: INR 1.1 INR
[2017-04-06 03:03] LABS: ANION GAP 7 (8-16); BLOOD UREA NITROGEN 11 MG/DL (7-18); BUN/CREATININE RATIO 13.8 (6.6-38.0); CALCIUM 9.4 MG/DL (8.5-10.1); CHLORIDE 102 MMOL/L (99-107); GLUCOSE 104 MG/DL (70-104); MAGNESIUM 1.9 MG/DL (1.5-2.4); POTASSIUM 4.6 MMOL/L (3.5-5.1); SODIUM 138 MMOL/L (135-145); TOTAL CARBON DIOXIDE 29.5 MMOL/L (24-32); eGFR 78 ML/MIN
[2017-04-06] MEDS: oxyCODONE IR 5mg (immed. release) tablet PO PRN ×5 (03:52→21:46)
[2017-04-06] MEDS: magnesium Cl slow-release 64mg tablet PO SCH ×2 (07:32→19:51)
[2017-04-06] MEDS: potassium Cl 20 mEq SR tablet PO SCH ×2 (07:32→20:00)
[2017-04-06] MEDS: loratadine 10mg tablet PO SCH (07:32)
[2017-04-06] MEDS: docusate sod 100mg capsule PO SCH ×2 (07:32→19:51)
[2017-04-06] MEDS: atorvastatin 10mg tablet PO SCH (07:32)
[2017-04-06] MEDS: pantoprazole 40mg Tablet.DR PO SCH (07:33)
[2017-04-06] MEDS ORDERED: magnesium citrate 296ml oral solution PO ONE (07:35)
[2017-04-06] MEDS: K and/or MAG REPLACEMENT MC SCH (08:00)
[2017-04-06] MEDS ORDERED: furosemide 40mg/4ml inj IV ONE (10:05)
[2017-04-06] MEDS ORDERED: amiodarone 150mg/dext, iso-os 100 ML IV ONE (11:25)
[2017-04-06] MEDS ORDERED: amiodarone/D5 450MG/250ML BAG 250 ML IV SCH (11:25)
[2017-04-06] MEDS: Protein Smoothie (high protein) 240ml (8oz) cup PO SCH (18:00)
[2017-04-06] MEDS: ipratropium/albuterol 3ml nebule NEB PRN (20:45)
[2017-04-06] MEDS ORDERED: warfarin 5mg tablet PO ONE (21:00)
[2017-04-07] VITALS (10 sets, daily range): BP systolic 97–140; BP diastolic 50–63
[2017-04-07] MEDS: oxyCODONE IR 5mg (immed. release) tablet PO PRN ×8 (01:56→22:01)
[2017-04-07] MEDS: HYDROmorphone inj. 0.5 MG/0.5 ML DISP.SYRIN ONE ×2 (04:36→04:42)
[2017-04-07] MEDS: HYDROmorphone 1 mg/ml syringe IV PRN (04:48)
[2017-04-07 06:50] LABS: BASOPHILS % (AUTO) 0.3 % (0-1); EOSINOPHILS # (AUTO) 0.2 X10'3 (0-0.9); HEMATOCRIT 24.8 % (35.0-45.0); HEMOGLOBIN 7.9 g/dl (12.0-16.0); LYMPHOCYTES # (AUTO) 1.4 X10'3 (1.1-4.8); LYMPHOCYTES % (AUTO) 15.6 % (21-51); MEAN CORPUSCULAR HEMOGLOBIN 24.7 PG (27.0-31.0); MEAN CORPUSCULAR HGB CONC 31.8 % (33.0-36.5); MEAN CORPUSCULAR VOLUME 77.5 FL (78-98); MEAN PLATELET VOLUME 8.7 FL (7.4-10.4); MONOCYTES % (AUTO) 10.7 % (2-12); NEUTROPHILS # (AUTO) 6.3 X10'3 (1.8-7.7); NEUTROPHILS % (AUTO) 71.4 % (42-75); PLATELET COUNT 179 X10'3 (140-440); RED BLOOD COUNT 3.21 X10'6 (4.20-5.60); RED CELL DISTRIBUTION WIDTH 19.7 % (11.5-14.5); WHITE BLOOD COUNT 8.9 X10'3 (4.5-11.0)
[2017-04-07 07:02] LABS: ALANINE AMINOTRANSFERASE 19 U/L (12-78); ALBUMIN 2.9 G/DL (3.4-5.0); ALBUMIN/GLOBULIN RATIO 0.7 (1.1-1.5); ALKALINE PHOSPHATASE 68 IU/L (46-116); ANION GAP 7 (8-16); ASPARTATE AMINO TRANSFERASE 16 U/L (10-37); BILIRUBIN,TOTAL 0.3 MG/DL (0.1-1.0); BLOOD UREA NITROGEN 14 MG/DL (7-18); BUN/CREATININE RATIO 17.5 (6.6-38.0); CALCIUM 9.4 MG/DL (8.5-10.1); CHLORIDE 101 MMOL/L (99-107); GLUCOSE 97 MG/DL (70-104); POTASSIUM 4.1 MMOL/L (3.5-5.1); SODIUM 138 MMOL/L (135-145); TOTAL CARBON DIOXIDE 30.5 MMOL/L (24-32); eGFR 78 ML/MIN
[2017-04-07] MEDS: docusate sod 100mg capsule PO SCH ×2 (07:10→20:33)
[2017-04-07] MEDS: loratadine 10mg tablet PO SCH (07:10)
[2017-04-07] MEDS: magnesium Cl slow-release 64mg tablet PO SCH ×2 (07:10→20:33)
[2017-04-07] MEDS: potassium Cl 20 mEq SR tablet PO SCH ×2 (07:11→20:00)
[2017-04-07] MEDS: atorvastatin 10mg tablet PO SCH (07:11)
[2017-04-07] MEDS: K and/or MAG REPLACEMENT MC SCH (07:11)
[2017-04-07] MEDS: pantoprazole 40mg Tablet.DR PO SCH (07:11)
[2017-04-07] MEDS: Protein Smoothie (high protein) 240ml (8oz) cup PO SCH ×3 (07:14→18:00)
[2017-04-07 07:26] LABS: INR 1.5 INR; PROTHROMBIN TIME 15.4 SECONDS (9.0-12.0)
[2017-04-07] MEDS: amiodarone 200mg tablet PO SCH ×2 (09:55→20:32)
[2017-04-07] MEDS: ipratropium/albuterol 3ml nebule NEB PRN (17:12)
[2017-04-07] MEDS: gabapentin 300mg capsule PO PRN (20:40)
[2017-04-07] MEDS ORDERED: warfarin 5mg tablet PO ONE (21:00)
[2017-04-08] MEDS: oxyCODONE IR 5mg (immed. release) tablet PO PRN ×7 (00:31→19:38)
[2017-04-08 03:00] VITALS: BP 113/60
[2017-04-08 06:00] VITALS: BP 102/72
[2017-04-08 06:20] LABS: BASOPHILS % (AUTO) 0.4 % (0-1); EOSINOPHILS # (AUTO) 0.2 X10'3 (0-0.9); EOSINOPHILS % (AUTO) 2.6 % (0-6); HEMATOCRIT 24.8 % (35.0-45.0); HEMOGLOBIN 7.9 g/dl (12.0-16.0); LYMPHOCYTES # (AUTO) 1.8 X10'3 (1.1-4.8); LYMPHOCYTES % (AUTO) 24.3 % (21-51); MEAN CORPUSCULAR HEMOGLOBIN 24.5 PG (27.0-31.0); MEAN CORPUSCULAR VOLUME 76.6 FL (78-98); MEAN PLATELET VOLUME 8.6 FL (7.4-10.4); MONOCYTES % (AUTO) 13.2 % (2-12); NEUTROPHILS # (AUTO) 4.4 X10'3 (1.8-7.7); NEUTROPHILS % (AUTO) 59.5 % (42-75); PLATELET COUNT 220 X10'3 (140-440); RED BLOOD COUNT 3.24 X10'6 (4.20-5.60); RED CELL DISTRIBUTION WIDTH 20.5 % (11.5-14.5); WHITE BLOOD COUNT 7.4 X10'3 (4.5-11.0)
[2017-04-08 06:34] LABS: INR 1.6 INR; PROTHROMBIN TIME 16.7 SECONDS (9.0-12.0)
[2017-04-08 06:40] LABS: ALBUMIN 2.8 G/DL (3.4-5.0); ANION GAP 9 (8-16); BLOOD UREA NITROGEN 16 MG/DL (7-18); CALCIUM 9.5 MG/DL (8.5-10.1); CHLORIDE 104 MMOL/L (99-107); GLUCOSE 94 MG/DL (70-104); POTASSIUM 4.1 MMOL/L (3.5-5.1); SODIUM 140 MMOL/L (135-145); eGFR 78 ML/MIN
[2017-04-08] MEDS: potassium Cl 20 mEq SR tablet PO SCH ×2 (07:54→19:38)
[2017-04-08] MEDS: K and/or MAG REPLACEMENT MC SCH (08:00)
[2017-04-08] MEDS: loratadine 10mg tablet PO SCH (08:04)
[2017-04-08] MEDS: amiodarone 200mg tablet PO SCH ×2 (08:04→19:36)
[2017-04-08] MEDS: atorvastatin 10mg tablet PO SCH (08:04)
[2017-04-08] MEDS: gabapentin 300mg capsule PO PRN ×2 (08:04→17:11)
[2017-04-08] MEDS: pantoprazole 40mg Tablet.DR PO SCH (08:04)
[2017-04-08] MEDS: docusate sod 100mg capsule PO SCH ×2 (08:04→19:35)
[2017-04-08] MEDS: magnesium Cl slow-release 64mg tablet PO SCH ×2 (08:04→19:35)
[2017-04-08] MEDS: Protein Smoothie (high protein) 240ml (8oz) cup PO SCH ×3 (08:13→18:10)
[2017-04-08 11:00] VITALS: BP 109/65
[2017-04-08 15:00] VITALS: BP 109/59
[2017-04-08 19:00] VITALS: BP 101/73
[2017-04-08] MEDS ORDERED: warfarin 7.5mg tablet PO ONE (21:00)
[2017-04-08 23:00] VITALS: BP 99/74
[2017-04-09] MEDS: oxyCODONE IR 5mg (immed. release) tablet PO PRN ×8 (00:49→22:08)
[2017-04-09 03:00] VITALS: BP 122/84
[2017-04-09 06:00] VITALS: BP 97/50
[2017-04-09 06:16] LABS: INR 1.6 INR; PROTHROMBIN TIME 16.7 SECONDS (9.0-12.0)
[2017-04-09 06:19] LABS: ALBUMIN 2.8 G/DL (3.4-5.0); ANION GAP 9 (8-16); BLOOD UREA NITROGEN 16 MG/DL (7-18); BUN/CREATININE RATIO 22.9 (6.6-38.0); CALCIUM 9.2 MG/DL (8.5-10.1); CHLORIDE 105 MMOL/L (99-107); GLUCOSE 92 MG/DL (70-104); POTASSIUM 4.2 MMOL/L (3.5-5.1); SODIUM 141 MMOL/L (135-145); TOTAL CARBON DIOXIDE 27.4 MMOL/L (24-32); eGFR > 90 ML/MIN
[2017-04-09] MEDS: potassium Cl 20 mEq SR tablet PO SCH ×2 (07:07→20:00)
[2017-04-09] MEDS ORDERED: magnesium citrate 296ml oral solution PO ONE (07:10)
[2017-04-09] MEDS: pantoprazole 40mg Tablet.DR PO SCH (07:54)
[2017-04-09] MEDS: atorvastatin 10mg tablet PO SCH (07:54)
[2017-04-09] MEDS: loratadine 10mg tablet PO SCH (07:54)
[2017-04-09] MEDS: docusate sod 100mg capsule PO SCH ×2 (07:54→20:39)
[2017-04-09] MEDS: magnesium Cl slow-release 64mg tablet PO SCH ×2 (07:54→20:00)
[2017-04-09] MEDS: amiodarone 200mg tablet PO SCH ×2 (07:54→20:39)
[2017-04-09] MEDS: K and/or MAG REPLACEMENT MC SCH (08:00)
[2017-04-09] MEDS: Protein Smoothie (high protein) 240ml (8oz) cup PO SCH ×3 (08:00→18:08)
[2017-04-09 08:46] LABS: BASOPHILS % (AUTO) 0.5 % (0-1); EOSINOPHILS # (AUTO) 0.2 X10'3 (0-0.9); EOSINOPHILS % (AUTO) 2.4 % (0-6); HEMATOCRIT 25.2 % (35.0-45.0); HEMOGLOBIN 8.2 g/dl (12.0-16.0); LYMPHOCYTES # (AUTO) 1.4 X10'3 (1.1-4.8); LYMPHOCYTES % (AUTO) 23.1 % (21-51); MEAN CORPUSCULAR HEMOGLOBIN 24.6 PG (27.0-31.0); MEAN CORPUSCULAR HGB CONC 32.4 % (33.0-36.5); MEAN PLATELET VOLUME 8.5 FL (7.4-10.4); MONOCYTES # (AUTO) 0.9 X10'3 (0-0.9); MONOCYTES % (AUTO) 13.6 % (2-12); NEUTROPHILS # (AUTO) 3.8 X10'3 (1.8-7.7); NEUTROPHILS % (AUTO) 60.4 % (42-75); PLATELET COUNT 238 X10'3 (140-440); RED BLOOD COUNT 3.31 X10'6 (4.20-5.60); RED CELL DISTRIBUTION WIDTH 20.5 % (11.5-14.5); WHITE BLOOD COUNT 6.3 X10'3 (4.5-11.0)
[2017-04-09 11:00] VITALS: BP 104/65
[2017-04-09] MEDS: gabapentin 300mg capsule PO PRN ×2 (14:29→20:48)
[2017-04-09 15:00] VITALS: BP 108/65
[2017-04-09 18:30] VITALS: BP 116/49
[2017-04-09] MEDS ORDERED: warfarin 7.5mg tablet PO ONE (21:00)
[2017-04-09 22:00] VITALS: BP 114/56
[2017-04-10] MEDS: oxyCODONE IR 5mg (immed. release) tablet PO PRN ×3 (01:39→08:14)
[2017-04-10 06:00] VITALS: BP 106/55
[2017-04-10 06:35] LABS: BASOPHILS % (AUTO) 0.7 % (0-1); EOSINOPHILS # (AUTO) 0.2 X10'3 (0-0.9); HEMATOCRIT 25.6 % (35.0-45.0); HEMOGLOBIN 8.4 g/dl (12.0-16.0); LYMPHOCYTES # (AUTO) 1.5 X10'3 (1.1-4.8); LYMPHOCYTES % (AUTO) 22.1 % (21-51); MEAN CORPUSCULAR HEMOGLOBIN 24.8 PG (27.0-31.0); MEAN CORPUSCULAR VOLUME 75.3 FL (78-98); MEAN PLATELET VOLUME 8.3 FL (7.4-10.4); MONOCYTES # (AUTO) 0.9 X10'3 (0-0.9); MONOCYTES % (AUTO) 12.5 % (2-12); NEUTROPHILS # (AUTO) 4.3 X10'3 (1.8-7.7); NEUTROPHILS % (AUTO) 61.7 % (42-75); PLATELET COUNT 302 X10'3 (140-440); RED CELL DISTRIBUTION WIDTH 20.6 % (11.5-14.5); WHITE BLOOD COUNT 6.9 X10'3 (4.5-11.0)
[2017-04-10 06:44] LABS: ALBUMIN 3.1 G/DL (3.4-5.0); ANION GAP 5 (8-16); BLOOD UREA NITROGEN 12 MG/DL (7-18); BUN/CREATININE RATIO 13.3 (6.6-38.0); CALCIUM 9.6 MG/DL (8.5-10.1); CHLORIDE 101 MMOL/L (99-107); GLUCOSE 94 MG/DL (70-104); MAGNESIUM 2.3 MG/DL (1.5-2.4); POTASSIUM 4.5 MMOL/L (3.5-5.1); SODIUM 138 MMOL/L (135-145); TOTAL CARBON DIOXIDE 31.6 MMOL/L (24-32); eGFR 68 ML/MIN
[2017-04-10 06:46] LABS: INR 2.3 INR; PROTHROMBIN TIME 22.8 SECONDS (9.0-12.0)
[2017-04-10] MEDS: atorvastatin 10mg tablet PO SCH (07:13)
[2017-04-10] MEDS: amiodarone 200mg tablet PO SCH (07:13)
[2017-04-10] MEDS: docusate sod 100mg capsule PO SCH (07:13)
[2017-04-10] MEDS: pantoprazole 40mg Tablet.DR PO SCH (07:13)
[2017-04-10] MEDS: loratadine 10mg tablet PO SCH (07:13)
[2017-04-10] MEDS: potassium Cl 20 mEq SR tablet PO SCH (07:14)
[2017-04-10] MEDS: K and/or MAG REPLACEMENT MC SCH (07:14)
[2017-04-10] MEDS: magnesium Cl slow-release 64mg tablet PO SCH (07:15)
[2017-04-10] MEDS: Protein Smoothie (high protein) 240ml (8oz) cup PO SCH (07:15)
[2017-04-10] MEDS ORDERED: COL100C PO (07:44)
[2017-04-10] MEDS ORDERED: OXYC-658 PO (07:44)
[2017-04-10] MEDS ORDERED: Non-Formulary PO (07:44)
[2017-04-10] MEDS ORDERED: AMIO200T57 PO (07:44)
[2017-10-01] MEDS ORDERED: heparin 10,000 units/1 ML INJ ONE (08:00)
[2017-10-01] MEDS ORDERED: LIDOcaine 1% (10mg/ml) 5ml syringe ONE (08:00)
[2017-10-01] MEDS ORDERED: phenylephrine 10mg/ml inj IV ONE (08:00)
[2017-10-01] MEDS ORDERED: calcium chloride 100 MG/1 ML inj IV ONE (08:00)
[2017-10-01] MEDS ORDERED: magnesium sulf 1 GM/2 ML ONE (08:00)
[2017-10-01] MEDS ORDERED: heparin 1,000 units/ml 10ml inj ONE (08:00)
[2017-10-01] MEDS ORDERED: methylPREDNISolone sod. succ. 500mg inj ONE (08:00)
[2017-10-01] MEDS ORDERED: potassium Cl 2 mEq/ml inj IV ONE (08:00)
[2017-10-01] MEDS ORDERED: sodium bicarbonate (8.4%) 1 mEq/ml syringe ONE (08:00)
[2017-10-01] MEDS ORDERED: albumin (human) 25% 100 ML IV solution IV ONE (08:00)
== END 2017-04-10 11:18 | disposition home or self-care (01) | DRG 220 ==
LOC: PAS IN 05:12 → EDSTATUS 07:30 → CICU 2S 12:11 → PCU 3S 04-05 15:16
PROVIDERS: ADMIT Thoracic Surgery (Cardiothoracic Vascular Surgery); ATTEND Thoracic Surgery (Cardiothoracic Vascular Surgery)
PROC: 4A133B3 Monitoring of Arterial Pressure, Pulmonary, Percutaneous Approach (ICD-10-PCS; 2017-04-03)
PROC: 02HP32Z Insertion of Monitoring Device into Pulmonary Trunk, Percutaneous Approach (ICD-10-PCS; 2017-04-03)
PROC: 5A1221Z Performance of Cardiac Output, Continuous (ICD-10-PCS; 2017-04-03)
PROC: B24BZZ4 Ultrasonography of Heart with Aorta, Transesophageal (ICD-10-PCS; 2017-04-03)
PROC: 05HN33Z Insertion of Infusion Device into Left Internal Jugular Vein, Percutaneous Approach (ICD-10-PCS; 2017-04-03)
PROC: B544ZZA Ultrasonography of Left Jugular Veins, Guidance (ICD-10-PCS; 2017-04-03)
PROC: 02RF0JZ Replacement of Aortic Valve with Synthetic Substitute, Open Approach (ICD-10-PCS; principal; 2017-04-03 08:40)
DX: I35.2 Nonrheumatic aortic (valve) stenosis with insufficiency (principal); R71.0 Precipitous drop in hematocrit; E11.40 Type 2 diabetes mellitus with diabetic neuropathy, unspecified; E78.00 Pure hypercholesterolemia, unspecified; F31.9 Bipolar disorder, unspecified; G47.33 Obstructive sleep apnea (adult) (pediatric); G89.29 Other chronic pain; I10 Essential (primary) hypertension; I25.10 Atherosclerotic heart disease of native coronary artery without angina pectoris; M54.9 Dorsalgia, unspecified; I48.91 Unspecified atrial fibrillation; J45.909 Unspecified asthma, uncomplicated; D44.6 Neoplasm of uncertain behavior of carotid body; K21.9 Gastro-esophageal reflux disease without esophagitis; Z72.0 Tobacco use; Z89.429 Acquired absence of other toe(s), unspecified side; Z98.84 Bariatric surgery status; Z88.6 Allergy status to analgesic agent; Z79.899 Other long term (current) drug therapy; Z79.01 Long term (current) use of anticoagulants; Z79.82 Long term (current) use of aspirin; Z79.4 Long term (current) use of insulin; Z85.72 Personal history of non-Hodgkin lymphomas; Z87.11 Personal history of peptic ulcer disease; Z80.9 Family history of malignant neoplasm, unspecified; Z83.3 Family history of diabetes mellitus; Z82.49 Family history of ischemic heart disease and other diseases of the circulatory system
CPT/HCPCS: 0232T; 93312; 93325; 36415; 36600; 71045; 71046; 80048; 80053; 81001; 82330; 82435; 82800; 82803; 82947; 82948; 83036; 83735; 84100; 84132; 84295; 85018; 85025; 85347; 85384; 85610; 85730; 86885; 86900; 86901; 86920; 87070; 88300; 93005; 93880; 94002; 94060; 94640; 94668; 94760; 97116; 97162; 97530; A6213; A6255; A6257; A6258; A6402; A6449; A7000; A7048; C1713; C1751; J0282; J0690; J1170; J1265; J1644; J1815; J1940; J2001; J2060; J2150; J2250; J2270; J2370; J2704; J2930; J3370; J3475; J3480; J3490; J7030; J7120; P9045; P9047

== ENCOUNTER 2017-06-26 16:35 | Emergency (ER) | payer MEDICARE, MEDICAID ==
[~2017-06-26] VITALS: Ht 180.3 cm; Wt 95.5 kg
[~2017-06-26 16:35] MED LIST changes: +AMIO200T57 PO; +COL100C PO; -ISOS30TA6 PO; -LORazepam 2 mg/ml vial IV PRN; -METO25TA6 PO; +Non-Formulary PO; +OXYC-658 PO; -OXYC10TA47 PO; -PRAZ1CAP5 PO; -albuterol 2.5 MG/3 ML nebule NEB ONE; -chlorhexidine gluc 0.4% **topical ** 120ml btl. TP ONE; -ringers solution, lacted 1,000 ML IV SCH
[2017-06-26] MEDS: acetaminophen 325mg tablet PO ONE (19:30)
[2017-06-26] MEDS: ketorolac trometh inj. 60 MG/2 ML VIAL IM ONE (19:30)
[2017-06-26] MEDS: proCHLORperazine 10mg tablet PO ONE (19:30)
[2017-06-26 19:35] VITALS: BP 129/70
== END 2017-06-26 19:53 | disposition home or self-care (01) ==
LOC: ER 16:36
DX: R51 Headache (principal); R42 Dizziness and giddiness; R11.0 Nausea; I25.10 Atherosclerotic heart disease of native coronary artery without angina pectoris; I10 Essential (primary) hypertension; G89.29 Other chronic pain; Z88.6 Allergy status to analgesic agent; Z79.84 Long term (current) use of oral hypoglycemic drugs; Z79.899 Other long term (current) drug therapy
CPT/HCPCS: 70450; 96372; 99284; J1885; Q0164